=== PATIENT | male | born 1945 | race Caucasian/White ===

== ENCOUNTER 2018-04-15 05:45 | Inpatient (IN) ==
[2018-04-08 13:24] LABS: Basophils % 0.4 % (0.0-0.8); Eosinophils # 0.4 10*3/uL (0.0-0.87); Eosinophils % 6.4 % (0.00-10.9); Hemoglobin 13.6 GM/DL (14.0-18.0); Immature Granulocytes % 0.4 %; Immature Granulocytes Absolute 0.02 #; Lymphocytes # 1.5 10*3/uL (1.4-4.0); Lymphocytes % 27.3 % (21.2-54.2); Mean Corpuscular HGB Conc 34.9 GM/DL (32-36); Mean Corpuscular Hemoglobin 31 PG (27-34); Monocytes # 0.5 10*3/uL (0.11-0.8); Monocytes % 8.6 % (1.7-12.7); Neutrophils # 3.1 10*3/uL (1.4-7.4); Neutrophils % 56.9 % (38.7-73.9); Platelet Count 289 T/CUMM (130-400); Red Blood Count 4.38 MC/CUMM (3.8-5.5); Red Cell Distribution Width 13.2 % (9.3-17.3); White Blood Count 5.5 T/CUMM (4-12)
[2018-04-08 13:35] LABS: PT Patient Result 10.7 SECS; Partial Thromboplastin Time 26.6 SECS (0-40)
[2018-04-08 14:01] LABS: Alanine Aminotransferase 22 U/L (16-61); Albumin 3.7 G/DL (3.4-5.0); Alkaline Phosphatase 93 U/L (45-117); Aspartate Amino Transferase 16 U/L (0-37); Bilirubin,Total < 0.39 MG/DL (0.2-1.0); Blood Urea Nitrogen 21 MG/DL (7-18); Calcium 8.4 MG/DL (8.5-10.1); Glucose 125 MG/DL (74-106); Potassium 4.1 MMOL/L (3.5-5.1); Sodium 143 MMOL/L (136-145); Total Protein 6.9 G/DL (6.4-8.3)
[2018-04-15] MEDS ORDERED: cefTRIAXone 1,000 MG in SYRINGE 1 EACH IV ONE (06:00)
[2018-04-15] MEDS ORDERED: cefTRIAXone 1,000 MG VIAL ONE (06:09)
[2018-04-15] MEDS: LACTATED RINGERS 1,000 ML IV SCH ×3 (07:00→13:51)
[2018-04-15] MEDS ORDERED: ROCURONIUM 100 MG/10 ML VIAL IV ONE (14:44)
[2018-04-15] MEDS ORDERED: DESFLURANE 1 UNIT/15 MINUTE INH ONE ×2 (14:44→15:52)
[2018-04-15] MEDS ORDERED: PROMETHAZINE 25 MG/1 ML VIAL IM PRN (15:32)
[2018-04-15] MEDS ORDERED: diphenhydrAMINE 50 MG/1 ML VIAL IV PRN (15:37)
[2018-04-15] MEDS ORDERED: ALBUTEROL/IPRATROPIUM 3 ML NEB RESP TX PRN (15:39)
[2018-04-15] MEDS ORDERED: BELLADONNA/OPIUM 30 MG SUPP RECTAL PRN (15:40)
[2018-04-15] MEDS ORDERED: ePHEDrine 50 MG/ML AMP ONE (15:47)
[2018-04-15] MEDS ORDERED: SUGAMMADEX 200 MG/2 ML VIAL IV ONE (15:47)
[2018-04-15] MEDS ORDERED: ONDANSETRON 4 MG/2 ML VIAL IV PRN (15:49)
[2018-04-15] MEDS: MORPHINE 10 MG/1 ML VIAL IV PRN ×5 (15:50→22:23)
[2018-04-15] MEDS ORDERED: MIDAZOLAM 2 MG/2 ML VIAL ONE (15:53)
[2018-04-15] MEDS ORDERED: PROPOFOL 200 MG/20 ML VIAL IV ONE (15:53)
[2018-04-15] MEDS ORDERED: fentaNYL 100 MCG/2 ML VIAL ONE (15:53)
[2018-04-15] MEDS ORDERED: LACTATED RINGERS 2,000 ML IV ONE (15:55)
[2018-04-15] MEDS ORDERED: ACETAMINOPHEN 1,000 MG/100 ML VIAL IV ONE (15:55)
[2018-04-15] MEDS: SODIUM CHLORIDE 0.9% 1,000 ML IV SCH ×2 (15:56→23:37)
[2018-04-15 16:00] LABS: Apearance,Urine CLEAR (Clear); Bacteria,Urine Occasional /HPF (Few); Bilirubin,Urine Negative (Negative); Blood, Urine Large mg/dL (Negative); Glucose,Urine (UA) Negative (Negative); Ketones,Urine Negative (Negative); Nitrite,Urine Negative (Negative); Protein,Urine 30 MG/DL; RBC,Urine 1 /HPF (0-4); Squamous Epithelial Cell,Urine Occasional /HPF (0-10); Urine Color Straw (Yellow); Urine Specific Gravity 1.001 (1.001-1.035); Urine Urobilinogen < 2.0 EU/DL (0.2-1.0); WBC,Urine 1 /HPF (0-6)
[2018-04-15 16:29] LABS: Basophils % 0.1 % (0.0-0.8); Eosinophils % 0.1 % (0.00-10.9); Hematocrit 38.7 VOL% (42.0-52.0); Hemoglobin 13.3 GM/DL (14.0-18.0); Immature Granulocytes % 0.6 %; Immature Granulocytes Absolute 0.08 #; Lymphocytes # 0.8 10*3/uL (1.4-4.0); Lymphocytes % 6.5 % (21.2-54.2); Mean Corpuscular HGB Conc 34.4 GM/DL (32-36); Mean Corpuscular Hemoglobin 31 PG (27-34); Mean Corpuscular Volume 89.6 FL (87-102); Mean Platelet Volume 9.1 FL (9.6-12.0); Monocytes # 0.7 10*3/uL (0.11-0.8); Monocytes % 5.4 % (1.7-12.7); Neutrophils # 11.3 10*3/uL (1.4-7.4); Neutrophils % 87.3 % (38.7-73.9); Platelet Count 245 T/CUMM (130-400); Red Blood Count 4.32 MC/CUMM (3.8-5.5); Red Cell Distribution Width 13.3 % (9.3-17.3); White Blood Count 12.9 T/CUMM (4-12)
[2018-04-15 16:51] LABS: Calcium 8.3 MG/DL (8.5-10.1); Osmolality,Calculated 288.3 MOS/KG (273-304); Potassium 5.4 MMOL/L (3.5-5.1)
[2018-04-15] MEDS: ACETAMINOPHEN 325 MG TABLET PO SCH ×2 (18:19→22:22)
[2018-04-15] MEDS: amLODIPine 5 MG TABLET PO SCH (22:19)
[2018-04-15] MEDS: FAMOTIDINE 20 MG TABLET PO SCH (22:23)
[2018-04-15] MEDS: DOCUSATE SODIUM 100 MG CAPSULE PO SCH (22:23)
[2018-04-15] MEDS: ONDANSETRON 4 MG/2 ML VIAL IV PRN (22:32)
[2018-04-16] MEDS: ACETAMINOPHEN 325 MG TABLET PO SCH ×4 (04:54→22:17)
[2018-04-16] MEDS: ONDANSETRON 4 MG/2 ML VIAL IV PRN (05:18)
[2018-04-16] MEDS: MORPHINE 10 MG/1 ML VIAL IV PRN (05:18)
[2018-04-16 06:51] LABS: Basophils % 0.1 % (0.0-0.8); Eosinophils # 0.1 10*3/uL (0.0-0.87); Hematocrit 37.6 VOL% (42.0-52.0); Immature Granulocytes % 0.5 %; Immature Granulocytes Absolute 0.04 #; Lymphocytes # 0.8 10*3/uL (1.4-4.0); Lymphocytes % 9.4 % (21.2-54.2); Mean Corpuscular HGB Conc 34.6 GM/DL (32-36); Mean Corpuscular Hemoglobin 30 PG (27-34); Mean Corpuscular Volume 88.1 FL (87-102); Mean Platelet Volume 9.2 FL (9.6-12.0); Monocytes # 0.7 10*3/uL (0.11-0.8); Neutrophils # 6.8 10*3/uL (1.4-7.4); Platelet Count 213 T/CUMM (130-400); Red Blood Count 4.27 MC/CUMM (3.8-5.5); Red Cell Distribution Width 13.4 % (9.3-17.3); White Blood Count 8.4 T/CUMM (4-12)
[2018-04-16 07:11] LABS: Calcium 8.3 MG/DL (8.5-10.1); Osmolality,Calculated 288.3 MOS/KG (273-304)
[2018-04-16] MEDS ORDERED: NALOXONE 0.4 MG/ML VIAL IV PRN (08:32)
[2018-04-16] MEDS: DOCUSATE SODIUM 100 MG CAPSULE PO SCH ×2 (09:28→22:15)
[2018-04-16] MEDS: OXYBUTYNIN XL 5 MG TABLET PO SCH (09:28)
[2018-04-16] MEDS: CARVEDILOL 6.25 MG TABLET PO SCH (09:28)
[2018-04-16] MEDS: SODIUM CHLORIDE 0.9% 1,000 ML IV SCH ×2 (09:30→17:36)
[2018-04-16] MEDS: MORPHINE PCA 30 MG/30 ML SYRINGE IV SCH (09:45)
[2018-04-16] MEDS: FAMOTIDINE 20 MG TABLET PO SCH (22:15)
[2018-04-16] MEDS: amLODIPine 5 MG TABLET PO SCH (22:15)
[2018-04-17] MEDS: SODIUM CHLORIDE 0.9% 1,000 ML IV SCH ×3 (04:01→21:06)
[2018-04-17] MEDS: ACETAMINOPHEN 325 MG TABLET PO SCH ×4 (04:03→21:07)
[2018-04-17 07:42] LABS: Calcium 8.3 MG/DL (8.5-10.1); Osmolality,Calculated 282.7 MOS/KG (273-304); Potassium 4.6 MMOL/L (3.5-5.1)
[2018-04-17] MEDS: DOCUSATE SODIUM 100 MG CAPSULE PO SCH ×2 (09:18→21:07)
[2018-04-17] MEDS: OXYBUTYNIN XL 5 MG TABLET PO SCH (09:18)
[2018-04-17] MEDS: CARVEDILOL 6.25 MG TABLET PO SCH (09:18)
[2018-04-17] MEDS: MORPHINE PCA 30 MG/30 ML SYRINGE IV SCH (09:21)
[2018-04-17] MEDS: FAMOTIDINE 20 MG TABLET PO SCH (21:07)
[2018-04-17] MEDS: amLODIPine 5 MG TABLET PO SCH (21:07)
[2018-04-18] MEDS: ACETAMINOPHEN 325 MG TABLET PO SCH ×3 (04:34→15:17)
[2018-04-18] MEDS: SODIUM CHLORIDE 0.9% 1,000 ML IV SCH ×2 (04:35→15:17)
[2018-04-18 07:12] LABS: Calcium 8.3 MG/DL (8.5-10.1); Osmolality,Calculated 282.7 MOS/KG (273-304); Potassium 4.2 MMOL/L (3.5-5.1)
[2018-04-18] MEDS ORDERED: cefTRIAXone 1,000 MG in SYRINGE 1 EACH IV ONE (07:28)
[2018-04-18 07:54] LABS: Hematocrit 31.9 VOL% (42.0-52.0); Hemoglobin 11.2 GM/DL (14.0-18.0); Mean Corpuscular HGB Conc 35.1 GM/DL (32-36); Mean Corpuscular Hemoglobin 31 PG (27-34); Mean Corpuscular Volume 86.9 FL (87-102); Platelet Count 210 T/CUMM (130-400); Red Blood Count 3.67 MC/CUMM (3.8-5.5); Red Cell Distribution Width 13.2 % (9.3-17.3); White Blood Count 9.9 T/CUMM (4-12)
[2018-04-18 07:55] LABS: Basophils % 0.1 % (0.0-0.8); Eosinophils # 0.3 10*3/uL (0.0-0.87); Immature Granulocytes % 0.4 %; Immature Granulocytes Absolute 0.04 #; Lymphocytes # 0.9 10*3/uL (1.4-4.0); Lymphocytes % 8.9 % (21.2-54.2); Mean Platelet Volume 9.6 FL (9.6-12.0); Monocytes # 0.6 10*3/uL (0.11-0.8); Monocytes % 5.8 % (1.7-12.7); Neutrophils # 8.1 10*3/uL (1.4-7.4); Neutrophils % 81.8 % (38.7-73.9)
[2018-04-18] MEDS: CARVEDILOL 6.25 MG TABLET PO SCH (10:17)
[2018-04-18] MEDS ORDERED: GENTAMICIN 80 MG/2 ML VIAL ONE (11:00)
[2018-04-18] MEDS ORDERED: SEVOFLURANE 1 UNIT/15 MINUTE INH ONE (11:49)
[2018-04-18] MEDS ORDERED: PROPOFOL 200 MG/20 ML VIAL IV ONE (11:49)
[2018-04-18] MEDS ORDERED: fentaNYL 100 MCG/2 ML VIAL ONE (11:49)
[2018-04-18] MEDS ORDERED: LACTATED RINGERS 1,000 ML IV ONE (11:50)
[2018-04-18] MEDS ORDERED: PHENYLEPHRINE 1 MG/10 ML SYRINGE IV ONE (11:50)
[2018-04-18] MEDS ORDERED: ONDANSETRON 4 MG/2 ML VIAL ONE (11:50)
[2018-04-18] MEDS ORDERED: HYDROmorphone 2 MG/1 ML VIAL IV PRN (12:13)
[2018-04-18] MEDS ORDERED: ONDANSETRON 4 MG/2 ML VIAL IV PRN (12:13)
[2018-04-18] MEDS: MORPHINE PCA 30 MG/30 ML SYRINGE IV SCH (12:18)
[2018-04-18] MEDS ORDERED: LACTATED RINGERS 1,000 ML IV SCH (12:30)
[2018-04-18] MEDS: DOCUSATE SODIUM 100 MG CAPSULE PO SCH (15:06)
[2018-04-18] MEDS: OXYBUTYNIN XL 5 MG TABLET PO SCH (15:06)
[2018-04-18 20:06] VITALS: BP 159/87
== END 2018-04-18 19:30 | disposition home or self-care (01) | DRG 657 ==
LOC: N.OR 05:45 → N.SDSINP 05:49 → N.5E 15:32
PROVIDERS: ADMIT Surgery; ATTEND Surgery